=== PATIENT | male | born 1945 | race Caucasian/White ===

== ENCOUNTER → 2019-08-03 16:09 | Outpatient (CLI) | payer MEDICARE, OTHER, SELFPAY ==
--- NOTE | 2019-08-03 | DI.RAD.S_ITS ---
PROCEDURE: XR WRIST RT MIN 3V INDICATIONS: RT WRIST PAIN TECHNIQUE: 3 views of the wrist were acquired. COMPARISON: None. 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 On the lateral view there appears to be several old bone fragments or accessory ossicles superimposed on the dorsum of the carpal bones. No suspicious bony lesions. Scaphoid view: No trauma of the scaphoid is seen, a dedicated scaphoid view is not obtained, however. Soft tissues: No suspicious soft tissue calcifications. IMPRESSION: Quite severe degenerative changes as noted, predominantly involving the radial aspect of the wrist and base of the first metacarpal. Dictated by: Nilay Jiménez M.D. on 08/03/2019 at 17:23 Approved by: Nilay Jiménez M.D. on 08/03/2019 at 17:24
== END ==
PROVIDERS: PCP Internal Medicine; Visit Provider Internal Medicine
DX: M25.531 Pain in right wrist (principal)
CPT/HCPCS: 73110

== ENCOUNTER → 2019-09-08 13:14 | Outpatient (CLI) | payer MEDICARE, OTHER, SELFPAY ==
[2019-09-08 14:45] LABS: Alanine Aminotransferase 17 IU/L (<50); Aspartate Aminotransferase 19 IU/L (17-59); Blood Urea Nitrogen 16 mg/dL (9-20); Carbon Dioxide 27 mmol/L (22-32); Chloride 105 mmol/L (98-107); Cholesterol 199 mg/dL (140-199); Estimated Glomerular Filt Rate > 60.0 mL/min (>60); Glucose 92 mg/dL (80-110); HDL Cholesterol 47 mg/dL (40-60); HEMOLYSIS < 15 (0-50); LDL Cholesterol Calculated 122 mg/dL (<100); Sodium 141 mmol/L (137-145); Triglycerides 150 mg/dL (35-150)
[2019-09-08 15:35] LABS: TSH w/ Reflex to FT4 2.84 uIU/mL (0.47-4.68)
== END ==
PROVIDERS: PCP Internal Medicine; Visit Provider Internal Medicine
DX: I10 Essential (primary) hypertension (principal); E78.5 Hyperlipidemia, unspecified; E03.9 Hypothyroidism, unspecified
CPT/HCPCS: 36415; 80048; 80061; 84443; 84450; 84460; 86635

== ENCOUNTER → 2020-06-16 10:16 | Outpatient (CLI) | payer MEDICARE, OTHER, SELFPAY ==
[2020-06-16 11:20] LABS: Alanine Aminotransferase 23 IU/L (<50); Albumin 4.2 g/dL (3.5-5.0); Albumin Globulin Ratio 1.3 (1.0-2.8); Alkaline Phosphatase 62 U/L (38-126); Aspartate Aminotransferase 26 IU/L (17-59); Bilirubin Total 0.6 mg/dL (0.2-1.3); Blood Urea Nitrogen 13 mg/dL (9-20); Calcium 9.1 mg/dL (8.4-10.2); Carbon Dioxide 28 mmol/L (22-32); Chloride 106 mmol/L (98-107); Cholesterol 152 mg/dL (140-199); Estimated Glomerular Filt Rate > 60.0 mL/min (>60); Globulin 3.2 g/dL (1.7-4.1); Glucose 108 mg/dL (80-110); HDL Cholesterol 70 mg/dL (40-60); HEMOLYSIS < 15 (0-50); LDL Cholesterol Calculated 67 mg/dL (<100); Potassium 4.3 mmol/L (3.4-5.1); Sodium 140 mmol/L (137-145); Total Protein 7.4 g/dL (6.3-8.2); Triglycerides 74 mg/dL (35-150)
[2020-06-16 11:50] LABS: TSH w/ Reflex to FT4 3.38 uIU/mL (0.47-4.68)
== END ==
PROVIDERS: PCP Internal Medicine; Referring Provider Internal Medicine; Visit Provider Internal Medicine
DX: E78.5 Hyperlipidemia, unspecified (principal); E03.9 Hypothyroidism, unspecified; I10 Essential (primary) hypertension
CPT/HCPCS: 36415; 80053; 80061; 84443

== ENCOUNTER → 2022-02-13 14:07 | Outpatient (CLI) | payer MEDICARE, OTHER, SELFPAY ==
--- NOTE | 2022-02-13 14:10 | DI.RAD.S_ITS ---
PROCEDURE: XR CHEST 2V INDICATIONS: cough, chest congestion, fatigue, possible PNA TECHNIQUE: 2 views of the chest were acquired. COMPARISON: None. FINDINGS: Surgical changes and devices: None. Lungs and pleura: There is a 5 cm left suprahilar mass. Small pleural effusions are present bilaterally. No pleural effusions or pneumothorax. Mediastinum: Mediastinal contours are normal. Heart size is normal. Bones and chest wall: No suspicious bony abnormalities. Soft tissues appear unremarkable. IMPRESSION: 1. A 5 cm left suprahilar mass suspicious for lung cancer. Recommend chest CT with IV contrast for follow-up evaluation. 2. Small pleural effusions bilaterally. Dictated by: Guy Damico M.D. on 02/13/2022 at 15:43 Approved by: Guy Damico M.D. on 02/13/2022 at 15:47
== END ==
PROVIDERS: PCP Internal Medicine; Referring Provider Physician Assistant; Visit Provider Physician Assistant
DX: J06.9 Acute upper respiratory infection, unspecified (principal); R91.8 Other nonspecific abnormal finding of lung field; J90 Pleural effusion, not elsewhere classified
CPT/HCPCS: 71046

== ENCOUNTER → 2022-02-14 14:25 | Outpatient (CLI) | payer MEDICARE, OTHER, SELFPAY ==
--- NOTE | 2022-02-14 14:27 | DI.CT.S_ITS ---
PROCEDURE: CT CHEST W CON INDICATIONS: R lung mass first seen on CXR 02/13/22 TECHNIQUE: After the administration of intravenous contrast, 5 mm thick sections acquired from the pulmonary apices to the posterior costophrenic angles. 1 mm axial lung, 5 mm thick coronal and sagittal reformats and 7 mm axial MIP were acquired. For radiation dose reduction, the following was used: automated exposure control, adjustment of mA and/or kV according to patient size. COMPARISON: [facility], CR, XR CHEST 2V, 02/13/2022, 14:17. FINDINGS: Image quality: Excellent. Lungs and pleura: There is a spiculated peripherally enhancing, centrally hypodense 6.1 x 4.4 x 5.9 cm left upper lobe pulmonary mass which corresponds with the abnormality on the plain film dated February 13, 2022. Trace ground-glass radiopacities surround this lesion. There are some peripheral air bronchograms present. No other suspicious mass lesions or pulmonary nodules. There is a small low-density left pleural effusion. Mediastinum: Heart size is normal. No pericardial effusion there is a 1.3 cm in diameter pretracheal lymph node. No hilar adenopathy. There are calcified right hilar lymph nodes suggesting prior granulomatous infection. Thoracic aorta and central pulmonary arteries are normal in size. Esophagus is normal in caliber. No hiatal hernia. Bones and chest wall: No suspicious bony lesions. No vertebral body compression fractures. No axillary or supraclavicular adenopathy by size criteria. Thyroid gland is unremarkable . Abdomen: Visualized upper abdominal solid organs appear normal. Upper abdominal bowel loops are normal in caliber. IMPRESSION: 1. Spiculated left upper lobe mass with probable central necrosis suspicious for primary bronchogenic carcinoma. If clinically indicated, this lesion is amenable to percutaneous CT-guided biopsy. 2. Enlarged pretracheal lymph node suspicious for analilia metastasis. Dictated by: Rose Marie Santamaria M.D. on 02/14/2022 at 15:39 Approved by: Rose Marie Santamaria M.D. on 02/14/2022 at 15:45
[2022-02-14 14:52] LABS: Alanine Aminotransferase 15 IU/L (<50); Albumin 3.6 g/dL (3.5-5.0); Albumin Globulin Ratio 0.9 (1.0-2.8); Alkaline Phosphatase 70 U/L (38-126); Aspartate Aminotransferase 17 IU/L (17-59); BUN Creatinine Ratio 16.2 (6-22); Bilirubin Total 0.4 mg/dL (0.2-1.3); Blood Urea Nitrogen 18 mg/dL (9-20); Calcium 8.7 mg/dL (8.4-10.2); Carbon Dioxide 27 mmol/L (22-32); Chloride 103 mmol/L (98-107); Estimated Glomerular Filt Rate > 60 mL/min (>60); Globulin 3.8 g/dL (1.7-4.1); Glucose 124 mg/dL (80-110); HEMOLYSIS < 15 (0-50); Potassium 4.4 mmol/L (3.4-5.1); Sodium 137 mmol/L (137-145); Total Protein 7.4 g/dL (6.3-8.2)
== END ==
PROVIDERS: Nurse Practitioner; PCP Internal Medicine; Referring Provider Physician Assistant; Visit Provider Physician Assistant
DX: R91.8 Other nonspecific abnormal finding of lung field (principal); R59.0 Localized enlarged lymph nodes
CPT/HCPCS: 36415; 71260; 80053; Q9967

== ENCOUNTER → 2022-02-23 12:41 | Outpatient (CLI) | payer MEDICARE, OTHER, SELFPAY ==
--- NOTE | 2022-02-23 | DI.RAD.S_ITS ---
PROCEDURE: XR CHEST 2V INDICATIONS: Other nonspecific abnormal finding of lung field TECHNIQUE: 2 views of the chest were acquired. COMPARISON: [facility], CT, CT CHEST W CON, 02/14/2022, 15:14. [facility], CR, XR CHEST 2V, 02/13/2022, 14:17. FINDINGS: Surgical changes and devices: None. Lungs and pleura: There is a decrease in the size of the left pulmonary mass when compared with the plain film dated February 13, 2022; however a discrete hilar mass persists. Mediastinum: Mediastinal contours are normal. Heart size is normal. Bones and chest wall: No suspicious bony abnormalities. Soft tissues appear unremarkable. IMPRESSION: Persistent but decreased size of the left pulmonary mass when compared with the study dated February 13, 2022. Continued surveillance to resolution recommended. Dictated by: Rose Marie Santamaria M.D. on 02/23/2022 at 13:35 Approved by: Rose Marie Santamaria M.D. on 02/23/2022 at 13:36
== END ==
PROVIDERS: PCP Internal Medicine; Referring Provider Internal Medicine; Visit Provider Internal Medicine
DX: R91.8 Other nonspecific abnormal finding of lung field (principal)
CPT/HCPCS: 71046

== ENCOUNTER → 2022-06-28 10:07 | Outpatient (CLI) | payer MEDICARE, OTHER, SELFPAY ==
--- NOTE | 2022-06-28 10:08 | DI.CT.S_ITS ---
PROCEDURE: CT CHEST WO CON INDICATIONS: Follow up lung mass TECHNIQUE: Noncontrast 5 mm thick sections acquired from the pulmonary apices to the posterior costophrenic angles. 1 mm lung window, 5 mm thick coronal and sagittal and 7 mm axial MIP reformats were then acquired. For radiation dose reduction, the following was used: automated exposure control, adjustment of mA and/or kV according to patient size. COMPARISON: [facility], CT, CT VERAN CHEST, 03/13/2022, 12:21. [facility], CT, CT CHEST W CON, 02/14/2022, 15:14. [facility], [place], PET NECK TO MID THIGH, 04/13/2022, 13:21. FINDINGS: Image quality: Excellent. Lungs and pleura: There is irregular scarring seen involving the anterior left upper lobe, yet without a focal nodular/masslike component. The appearance is clearly improved compared to the prior chest CT and is also mildly improved compared to the CT portion of the PET-CT dated 04/13/2022. No new masses are seen. No focal infiltrates are seen. No pneumothorax or pleural effusions are seen. The central airways are patent. Mediastinum: Heart size is normal. No pericardial effusion. No mediastinal adenopathy by size criteria. Calcified mediastinal lymph nodes are seen. Thoracic aorta and central pulmonary arteries are normal in size. At least moderate coronary artery calcification can be seen. Esophagus is normal in caliber. No hiatal hernia. Bones and chest wall: No suspicious bony lesions. No vertebral body compression fractures. No axillary or supraclavicular adenopathy by size criteria. Thyroid gland demonstrates no significant noncontrast abnormality. Abdomen: Visualized upper abdominal solid organs and bowel loops appear normal in the absence of contrast. IMPRESSION: Irregular scarring involving the anterior left upper lobe, which is improved compared to the prior CT examinations. No frankly enlarged mediastinal lymph nodes are seen. Incidental note is made of: At least moderate coronary artery calcification Dictated by: Dwain Dutton M.D. on 06/28/2022 at 12:01 Approved by: Dwain Dutton M.D. on 06/28/2022 at 12:04
== END ==
PROVIDERS: PCP Internal Medicine; Referring Provider Internal Medicine Medical Oncology; Visit Provider Internal Medicine Medical Oncology
DX: J98.4 Other disorders of lung (principal); R97.20 Elevated prostate specific antigen [PSA]; I25.10 Atherosclerotic heart disease of native coronary artery without angina pectoris
CPT/HCPCS: 71250

== ENCOUNTER → 2022-12-20 10:02 | Outpatient (CLI) | payer MEDICARE, OTHER, SELFPAY ==
--- NOTE | 2022-12-20 10:05 | DI.CT.S_ITS ---
PROCEDURE: CT CHEST WO CON INDICATIONS: left lung cavitary lesion TECHNIQUE: Noncontrast 5 mm thick sections acquired from the pulmonary apices to the posterior costophrenic angles. 1 mm lung window, 5 mm thick coronal and sagittal and 7 mm axial MIP reformats were then acquired. For radiation dose reduction, the following was used: automated exposure control, adjustment of mA and/or kV according to patient size. COMPARISON: [facility], CT, CT CHEST W CON, 02/14/2022, 15:14. [facility], [place], PET NECK TO MID THIGH, 04/13/2022, 13:21. [facility], CT, CT CHEST WO CON, 06/28/2022, 10:16. FINDINGS: Image quality: Excellent. Lungs and pleura: There is a subpleural scar with atelectasis in the left upper lobe and associated mild bronchiectasis.. The masslike density in the left upper lobe anteriorly seen on 02/14/2022 is no longer present. No acute air space opacities. No pleural effusions or pneumothorax. Central and peripheral airways are patent and normal in caliber. Mediastinum: Heart size is normal. Moderate to severe coronary artery atherosclerosis. Trace pericardial effusion. Stable 1 cm precarinal lymph node, likely reactive. Multiple calcified lymph node in mediastinum and right angelo. Thoracic aorta and central pulmonary arteries are normal in size. Esophagus is normal in caliber. Small hiatal hernia. Bones and chest wall: No suspicious bony lesions. No vertebral body compression fractures. No axillary or supraclavicular adenopathy by size criteria. Thyroid gland is unremarkable . Abdomen: Partial visualization of right parapelvic renal cyst versus right hydronephrosis. IMPRESSION: 1. There is a subpleural scar with atelectasis and bronchiectasis in the left upper lobe. No lung mass. 2. Moderate coronary artery atherosclerosis. 3. Stable 1 cm precarinal lymph node, likely reactive. 4. Calcified lymph nodes in mediastinum and right hilar compatible with remote granulomatous infection. 5. Partial visualization of right parapelvic renal cyst or hydronephrosis. Recommend renal ultrasound for follow-up evaluation. Dictated by: Guy Damico M.D. on 12/20/2022 at 16:31 Approved by: Guy Damico M.D. on 12/20/2022 at 16:40
== END ==
PROVIDERS: PCP Internal Medicine; Referring Provider Internal Medicine Hematology & Oncology; Visit Provider Internal Medicine Hematology & Oncology
DX: J98.4 Other disorders of lung (principal); I25.10 Atherosclerotic heart disease of native coronary artery without angina pectoris; K44.9 Diaphragmatic hernia without obstruction or gangrene; J98.11 Atelectasis; J47.9 Bronchiectasis, uncomplicated; I89.8 Other specified noninfective disorders of lymphatic vessels and lymph nodes
CPT/HCPCS: 71250